=== PATIENT | female | born 1975 | race Caucasian/White ===

== ENCOUNTER 2020-10-15 06:17 | Day surgery (SDC) | payer OTHER ==
[2020-10-09 16:52] VITALS: BMI 21.6
[2020-10-15] MEDS ORDERED: PROPOFOL 20 ML ONE (07:04)
[2020-10-15] MEDS ORDERED: LIDOCAINE HCL/PF 2% SDV 5ML VIAL ONE (07:04)
[2020-10-15] MEDS ORDERED: MIDAZOLAM HCL 2 MG/2 ML SINGLE DOSE VIAL ONE (07:04)
[2020-10-15] MEDS ORDERED: ONDANSETRON 4 MG/2 ML VIAL ONE (07:08)
[2020-10-15] MEDS ORDERED: DEXAMETHASONE SOD PHOSPHATE 4 MG/1 ML VIAL ONE (07:08)
[2020-10-15 07:18] VITALS: TEMP 98.2
[2020-10-15] MEDS ORDERED: ceFAZolin SODIUM 1 GM VIAL ONE ×2 (07:26→08:05)
[2020-10-15] MEDS ORDERED: LIDOCAINE HCL 1%, 10 MG/ML (20ML VIAL) ONE (07:27)
[2020-10-15] MEDS ORDERED: BACITRACIN 15 GM TUBE TOPICAL OINTMENT ONE (07:27)
[2020-10-15] MEDS ORDERED: GENTAMICIN SO4 80 MG/2 ML VIAL ONE (07:27)
[2020-10-15] MEDS ORDERED: BUPIVACAINE HCL/PF 0.25% (2.5MG/ML) 10 ML VIAL ONE (08:08)
[2020-10-15] MEDS ORDERED: BUPIVACAINE HCL/PF 0.25% (2.5MG/ML) 10 ML VIAL IJ ONE (10:15)
[2020-10-15] MEDS ORDERED: NITROGLYCERIN 2% OINTMENT - 1GM PACKET TD ONE (10:55)
[2020-10-15] MEDS ORDERED: oxyCODONE HCL 5 MG TABLET PO PRN ×4 (11:40→11:50)
[2020-10-15] MEDS ORDERED: ONDANSETRON 4 MG/2 ML VIAL IVPUSH PRN (11:40)
[2020-10-15] MEDS ORDERED: ONDANSETRON 4 MG/2 ML VIAL IVPB PRN (11:50)
[2020-10-15] MEDS ORDERED: LACTATED RINGERS SOLUTION 1,000 ML IV SCH (12:00)
[2020-10-15] MEDS ORDERED: oxyCODONE HCL 5 MG TABLET ONE ×2 (12:49→14:40)
[2020-10-15 14:46] VITALS: PULSE 72
[2020-10-15 15:27] VITALS: BP 116/61
== END 2020-10-15 15:20 | disposition home or self-care (01) ==
LOC: FASU 06:17
PROVIDERS: ATTEND Plastic Surgery
PROC: 0HPT0JZ Removal of Synthetic Substitute from Right Breast, Open Approach (ICD-10-PCS; principal; 2020-10-15 08:36)
PROC: 0HRT0JZ Replacement of Right Breast with Synthetic Substitute, Open Approach (ICD-10-PCS; 2020-10-15 08:36)
PROC: 0HRT37Z Replacement of Right Breast with Autologous Tissue Substitute, Percutaneous Approach (ICD-10-PCS; 2020-10-15 08:36)
DX: Z90.13 Acquired absence of bilateral breasts and nipples (principal); N65.1 Disproportion of reconstructed breast
CPT/HCPCS: 15771; 15777; 19342; 19380; C1789; 81025; 88300-TC; 88305-TC; 94760